=== PATIENT | female | born 1970 | race African-American/Black ===

== ENCOUNTER → 2016-08-11 | Outpatient (CLI) | payer BC | LOC: RAD 12:23 | DX: Z12.31 Encounter for screening mammogram for malignant neoplasm of breast (principal) ==

== ENCOUNTER 2018-11-10 12:35 | Emergency (ER) | payer BC ==
[~2018-11-10] VITALS: Ht 170.2 cm; Wt 96.6 kg
[2018-11-10 12:43] VITALS: BP 107/77
[2018-11-10] MEDS ORDERED: BYSTOLIC 5 MG5 M1 PO (12:46)
[2018-11-10 13:02] LABS: URINE BILIRUBIN NEGATIVE (Negative); URINE BLOOD TRACE (Negative); URINE CLARITY CLEAR; URINE COLOR YELLOW; URINE GLUCOSE-RANDOM* NEGATIVE (Negative); URINE KETONES NEGATIVE (Negative); URINE LEUKOCYTES-REFLEX NEGATIVE (Negative); URINE NITRITE-REFLEX NEGATIVE (Negative); URINE PROTEIN (DIPSTICK) NEGATIVE (Negative); URINE SPECIFIC GRAVITY 1.025 (1.005-1.035); URINE UROBILINOGEN 0.2 E.U./dl (0.2-1.0)
[2018-11-10 14:53] LABS: CASTS None Seen /LPF (None Seen); CRYSTALS None Seen /LPF (None Seen); MUCUS None Seen strn/LPF (None Seen); SQUAMOUS >10 Many /LPF (0-3); URINE RBC None Seen /HPF (0-2); URINE WBC None Seen /HPF (0-5)
== END 2018-11-10 15:00 | disposition home or self-care (01) ==
LOC: ER 12:35
PROVIDERS: Nurse Practitioner Family
DX: R10.2 Pelvic and perineal pain (principal); Z90.710 Acquired absence of both cervix and uterus

== ENCOUNTER → 2019-01-31 | Outpatient (CLI) | payer BC ==
[~2019-01-31] MED LIST: BYSTOLIC 5 MG5 M1 PO
== END ==
LOC: RAD 01:44
DX: Z12.31 Encounter for screening mammogram for malignant neoplasm of breast (principal)

== ENCOUNTER → 2019-02-06 | Outpatient (CLI) | payer BC | LOC: RAD 13:04 | DX: R92.8 Other abnormal and inconclusive findings on diagnostic imaging of breast (principal) ==

== ENCOUNTER 2019-10-03 15:59 | Emergency (ER) | payer BC ==
[~2019-10-03] VITALS: Ht 165.1 cm; Wt 99.8 kg
[2019-10-03] MEDS ORDERED: NORFLEX100 MG PO (18:08)
[2019-10-03] MEDS ORDERED: TRIAMTERENE/HCT1 CA1 PO (18:28)
[2019-10-03 18:45] VITALS: BP 125/80
== END 2019-10-03 18:45 | disposition home or self-care (01) ==
LOC: ER 15:59
DX: S16.1XXA Strain of muscle, fascia and tendon at neck level, initial encounter (principal); S46.812A Strain of other muscles, fascia and tendons at shoulder and upper arm level, left arm, initial encounter; S00.03XA Contusion of scalp, initial encounter; S80.12XA Contusion of left lower leg, initial encounter; M25.552 Pain in left hip; Z79.899 Other long term (current) drug therapy; Z90.710 Acquired absence of both cervix and uterus; V49.88XA Car occupant (driver) (passenger) injured in other specified transport accidents, initial encounter; Y93.89 Activity, other specified; Y92.413 State road as the place of occurrence of the external cause; Y99.9 Unspecified external cause status

== ENCOUNTER → 2020-05-15 | Outpatient (CLI) | payer OTHER ==
[~2020-05-15] MED LIST changes: +NORFLEX100 MG PO; +TRIAMTERENE/HCT1 CA1 PO
== END ==
LOC: BC 10:50
PROVIDERS: ATTEND Family Medicine
DX: Z12.31 Encounter for screening mammogram for malignant neoplasm of breast (principal)